=== PATIENT | female | born 1960 | race Caucasian/White ===

== ENCOUNTER 2018-09-30 09:22 | Emergency (ER) | payer OTHER | END 2018-09-30 10:04 | disposition home or self-care (01) | LOC: BURERS 09:22 | DX: R53.83 Other fatigue (principal); E03.9 Hypothyroidism, unspecified; F17.210 Nicotine dependence, cigarettes, uncomplicated | CPT/HCPCS: 99281 ==

== ENCOUNTER 2021-10-03 09:25 | Outpatient (CLI) | payer OTHER ==
[2021-10-03 09:54] LABS: Hemoglobin 14.6 g/dL (12.0-16.0); Mean Corpuscular HGB CONC 35.2 g/dL (32.0-36.0); Mean Corpuscular Hemoglobin 33.1 pg (27.0-31.0); Mean Corpuscular Volume 93.9 fL (78.0-98.0); Mean Platelet Volume 6.7 fL (7.4-10.4); Platelet Count 344 thou/uL (130-400); RBC Distribution Width 11.3 % (11.5-14.5); Red Blood Cell (RBC) Count 4.43 mill/uL (4.20-5.40); White Blood Cell (WBC) Count 7.4 thou/uL (4.8-10.8)
[2021-10-03 10:05] LABS: ALT (SGPT) 14 U/L (8-55); AST (SGOT) 19 U/L (5-34); Albumin 4.5 g/dL (3.4-4.8); Alkaline Phosphatase 54 U/L (40-110); Anion Gap 13 mmol/L (10-20); BUN (Urea Nitrogen) 13 mg/dL (9.8-20.1); Bilirubin, Total 0.3 mg/dL (0.2-1.2); Calc. Creatinine Clearance 0 mL/min (70-130); Calcium 9.6 mg/dL (7.8-10.44); Carbon Dioxide 25 mmol/L (23-31); Cardiac Risk 4.6 (Less than 4.5); Chloride 104 mmol/L (98-107); Cholesterol 329 mg/dl (< 200 Desired); Estimated GFR 51; Glucose 93 mg/dL (80-115); HDL Cholesterol 71 mg/dL (>60 Neg Risk); LDL Cholesterol, Calculated 237 mg/dL; Potassium 4.1 mmol/L (3.5-5.1); Protein, Total 7.5 g/dL (5.8-8.1); Sodium 138 mmol/L (136-145); Triglycerides 106 mg/dL (Less than 150)
[2021-10-03 10:28] LABS: Band 6 % (5-11); Eosinophils 5 % (0-10); Lymphocytes 29 % (21-51); MDiff Complete? YES; Metamyelocyte 1 % (0-0); Monocytes 3 % (0-10); Neutrophil 49 % (42-75); Reactive Lymphocytes 5 % (0-10)
== END 2021-10-03 09:26 | disposition home or self-care (01) ==
LOC: BURLAB 09:25
PROVIDERS: ATTEND Physician Assistant
DX: I10 Essential (primary) hypertension (principal); R53.82 Chronic fatigue, unspecified
CPT/HCPCS: 36415; 80053; 80061; 84443; 85025

== ENCOUNTER 2022-12-29 09:25 | Outpatient (CLI) | payer OTHER | END 2022-12-29 09:26 | disposition home or self-care (01) | LOC: BURRAD 09:25 | PROVIDERS: ATTEND Physician Assistant | DX: M25.512 Pain in left shoulder (principal) ==